=== PATIENT | female | born 1965 | race Hispanic/Latino ===

== ENCOUNTER 2018-05-27 08:37 | Outpatient (CLI) | payer OTHER ==
--- NOTE | 2018-05-27 13:11 | Mammography Report ---
BILATERAL DIGITAL SCREENING MAMMOGRAM with CAD: 05/27/18 08:37:00 CLINICAL: Routine screening. COMPARISON:06/22/16 FINDINGS: The breasts are heterogeneously dense, which may obscure small masses. No mass, architectural distortion or suspicious calcifications. IMPRESSION: No mammographic evidence of malignancy. BI-RADS CATEGORY: 1 - - Negative RECOMMENDATION: Routine mammographic screening in one year. COMMENT: Patient follow-up letters are generated by our [facility] application.
== END 2018-05-27 08:38 | disposition home or self-care (01) ==
LOC: MAMMO 08:37
PROVIDERS: ATTEND Internal Medicine
DX: Z12.31 Encounter for screening mammogram for malignant neoplasm of breast (principal)
CPT/HCPCS: 77067

== ENCOUNTER 2020-10-12 09:53 | Outpatient (CLI) | payer OTHER ==
--- NOTE | 2020-10-12 11:30 | Mammography Report ---
. DEXA BONE DENSITY SCAN INDICATION / CLINICAL INFORMATION: SCREENING FOR OSTEOPOROSIS. COMPARISON: None available. LUMBAR SPINE, L1-L4: - Bone mineral density (BMD) = 0.754 g/cm2. - T-score = -2.7 - Z-score = -1.7 Change (%) since most recent prior (if available): None available. RIGHT HIP, NECK : - Bone mineral density (BMD) = 0.617 g/cm2. - T-score = -2.1 - Z-score = -1.1 Change (%) since most recent prior (if available): None available. IMPRESSION: 1. WHO Classification: Osteoporosis. Fracture Risk: High. BMD Reporting Guidelines (ISCD, 2015) BMD Reporting in Postmenopausal Women and in Men Age 50 and Older * T-scores are preferred. * The WHO densitometric classification is applicable. BMD Reporting in Females Prior to Menopause and in Males Younger Than Age 50 * Z-scores, not T-scores, are preferred. This is particularly important in children. * A Z-score of -2.0 or lower is defined as below the expected range for age, and a Z-score above -2. 0 is within the expected range for age. * Osteoporosis cannot be diagnosed in men under age 50 on the basis of BMD alone. * The WHO diagnostic criteria may be applied to women in the menopausal transition. http://www.iscd.org/official-positions/3953-vsjb-nhkdtaxj-positions-adult/ Signer Name: Ricky Borden MD Signed: 10/12/2020 11:25 AM Workstation Name: [id number]
--- NOTE | 2020-10-12 12:58 | Mammography Report ---
DIGITAL SCREENING MAMMOGRAM WITH CAD, 10/12/2020 CLINICAL INFORMATION / INDICATION: Routine screening mammography. TECHNIQUE: Digital bilateral 2D mammography was obtained in the craniocaudal and mediolateral obliqu e projections. This examination was interpreted with the benefit of Computer-Aided Detection analysis . COMPARISON: 05/27/2018, 06/22/2016 FINDINGS: Breast Density: The breasts are heterogeneously dense, which may obscure small masses. No dominant mass, suspicious calcifications, or architectural distortion in either breast. No interval change. IMPRESSION: No mammographic evidence of malignancy. Follow up recommendation: Routine yearly BI-RADS Category 1: Negative. A "normal" or negative report should not discourage follow up or biopsy of a clinically significant f inding. A written summary of these findings will be mailed to the patient. The patient will be entered into a mammography reporting system which will generate a reminder letter for the patient's next appointmen t at the appropriate interval. The [employer] recommends yearly mammograms starting at age 40 and continuing as l zee as a woman is in good health. Breast MRI is recommended for women with an approximate 20-25% or greater lifetime risk of breast cancer, including women with a strong family history of breast or ova dionisio cancer or who have been treated for Hodgkin's disease. Signer Name: Peg Plascencia MD Signed: 10/12/2020 12:53 PM Workstation Name: [id number]
== END 2020-10-12 09:54 | disposition home or self-care (01) ==
LOC: MAMMO 09:53
PROVIDERS: ATTEND Internal Medicine
DX: Z12.31 Encounter for screening mammogram for malignant neoplasm of breast (principal); Z13.820 Encounter for screening for osteoporosis
CPT/HCPCS: 77067; 77080

== ENCOUNTER 2021-06-01 17:19 | Emergency (ER) | payer OTHER | END 2021-06-01 17:55 | disposition left against medical advice (07) | LOC: ED 17:19 | DX: M54.9 Dorsalgia, unspecified (principal); Z53.21 Procedure and treatment not carried out due to patient leaving prior to being seen by health care provider ==